=== PATIENT | male | born 1975 ===

== ENCOUNTER 2018-10-28 11:10 | Emergency (ER) | payer OTHER ==
[2018-10-28 11:21] VITALS: BMI 30.3
[2018-10-28 11:22] VITALS: RESP 18; O2SAT 98
--- NOTE | 2018-10-28 13:24 | RAD ---
Date of service: 10/28/2018 PROCEDURE: Cervical Spine Radiographs. HISTORY: Pain. COMPARISON: None available. TECHNIQUE: 3 views obtained. FINDINGS: BONES: Straightening of the normal cervical lordosis.. No fracture. Dens Intact. Anterior at C5-6 spondylosis especially C6. DISC SPACES: C5-6 disc space narrowing. SOFT TISSUES: No prevertebral soft tissue swelling. Multiple well corticated posterior nuchal soft tissue calcifications/ossifications OTHER FINDINGS: None. IMPRESSION: No fracture or subluxation. Cervical spine straightening can be seen with patient positioning and/or spasm. No vertebral body fracture. C5-6 disc space narrowing and spondylosis. Posterior nuchal soft tissue multiple calcifications/ossifications-probably relating to remote trauma.
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
[2018-10-28 14:29] VITALS: BP 104/68; PULSE 70; TEMP 98.3
== END 2018-10-28 14:15 | disposition home or self-care (01) ==
LOC: C.ER 11:10
DX: M54.2 Cervicalgia (principal); M54.9 Dorsalgia, unspecified
CPT/HCPCS: 72040; 72070; 72100; 96372; 99284; J1885

== ENCOUNTER 2018-11-04 19:30 | Emergency (ER) | payer OTHER, MEDICAID ==
[2018-11-04 19:30] VITALS: BMI 30.3
[2018-11-04 20:04] VITALS: BP 116/87; PULSE 73; RESP 20; TEMP 98.6; O2SAT 98
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
[2018-11-04] MEDS ORDERED: Dexamethasone 4 mg/1 ml IM STA (20:33)
== END 2018-11-04 21:29 | disposition home or self-care (01) ==
LOC: C.ER 19:30
DX: M54.5 Low back pain (principal)
CPT/HCPCS: 96372; 99283; J1100; J1885